=== PATIENT | male | born 1970 | race Caucasian/White ===

== ENCOUNTER 2020-08-31 03:36 | Outpatient (CLI) | payer BC, SELFPAY ==
[2020-08-31 10:04] LABS: Calculated LDL 150 mg/dL (<100); Cholesterol 226 mg/dL (<200); HDL Cholesterol 57 mg/dL (40-60); Triglyceride 97 mg/dL (<150)
[2020-08-31 10:05] LABS: Hemoglobin A1C 5.2 % (<5.7)
== END 2020-08-31 03:37 | disposition home or self-care (01) ==
LOC: LBO 03:37
PROVIDERS: PCP Nurse Practitioner; Visit Provider Nurse Practitioner
DX: Z13.1 Encounter for screening for diabetes mellitus (principal); Z13.6 Encounter for screening for cardiovascular disorders
CPT/HCPCS: 36415; 80061; 83036

== ENCOUNTER → 2021-08-28 01:33 | Outpatient (CLI) | payer OTHER, SELFPAY ==
--- NOTE | 2021-08-28 08:20 | DI.RAD_ITS ---
Exam(s) XR CHEST 2V PA LATERAL EXAM: XR CHEST 2V PA LATERAL CLINICAL HISTORY: recurrent SOB, mild pleuritic symtoms, normal exam,r06.02 TECHNIQUE: 2D digital imaging was performed. COMPARISON: No exams were available for comparison FINDINGS: MEDIASTINUM: Normal. HEART: Normal. PULMONARY VASCULATURE: Normal. LUNGS: Clear. PLEURAL SPACE: No pleural effusion or pneumothorax. BONE:Unremarkable for age. IMPRESSION: No acute abnormality. DATA REPOSITORY: RADIATION DOSE DELIVERED:
== END ==
PROVIDERS: PCP Nurse Practitioner; Visit Provider Family Medicine
DX: R06.02 Shortness of breath (principal); R07.81 Pleurodynia
CPT/HCPCS: 71046

== ENCOUNTER 2021-08-28 03:33 | Outpatient (CLI) | payer OTHER, SELFPAY ==
[2021-08-28 08:17] LABS: HCT 43.1 % (40.0-50.0); HGB 15.4 g/dL (13.5-17.5); MCH 30.1 pg (27.0-33.0); MCHC 35.7 % (32.0-36.0); MCV 84.2 fL (80-95); MPV 9.3 fL (8.0-11.0); Platelet Count 179 10^3/uL (130-400); RBC 5.12 10^6/uL (4.36-5.78); RDW 11.9 % (11.8-14.1); RDW-SD 36.1 fL; WBC 6.22 10^3/uL (4.4-10.8)
[2021-08-28 09:53] LABS: ALT 54 U/L (16-63); AST 26 U/L (15-37); Albumin 4.1 g/dL (3.4-5.0); Alkaline Phosphatase 58 U/L (46-116); Anion Gap 6.5 mmol/L (3-11); BUN 17 mg/dL (7-18); Bilirubin, Total 0.8 mg/dL (0.2-1.0); CO2 29.5 mmol/L (21.0-32.0); CREATININE 0.9 mg/dL (0.70-1.30); Calcium 8.5 mg/dL (8.5-10.1); Calculated LDL 129 mg/dL (<100); Chloride 105 mmol/L (98-107); Cholesterol 202 mg/dL (<200); Glucose 118 mg/dL (74-106); HDL Cholesterol 46 mg/dL (40-60); Sodium 141 mmol/L (136-145); TSH (W/Ref FT4) 2.37 uIU/mL (0.36-3.74); Total Protein 7.2 g/dL (6.4-8.2); Triglyceride 137 mg/dL (<150)
[2021-08-29 09:34] LABS: Hepatitis C Ab w Rflx HCV PCR Negative (Negative)
[2021-08-29 09:51] LABS: HIV-1/2 Ag & Ab Screen Negative (Negative)
== END 2021-08-28 03:34 | disposition home or self-care (01) ==
LOC: LBO 03:34
PROVIDERS: Family Medicine; PCP Nurse Practitioner; Visit Provider Nurse Practitioner
DX: I10 Essential (primary) hypertension (principal); E78.5 Hyperlipidemia, unspecified; R06.02 Shortness of breath; Z11.4 Encounter for screening for human immunodeficiency virus [HIV]; Z11.59 Encounter for screening for other viral diseases
CPT/HCPCS: 36415; 80053; 80061; 85027; 86803; 87389; 84443

== ENCOUNTER 2023-04-01 08:00 | Day surgery (SDC) | payer OTHER, SELFPAY ==
--- NOTE | 2023-03-31 18:40 | W.PM.DSUDISC ---
Date of service: 04/01/23 Time of Service: 10:09 Discharge Plan Disposition Patient Disposition: Home Condition: Good Discharge Details Reason For Visit: screening colonoscopy Attending Provider: Bartolome Mosqueda Primary Care Provider: Annette Swan Home Meds and New Rx's Prescriptions: Continued cetirizine [Zyrtec] 10 mg tablet 10 mg PO DAILY PRN melatonin 5 mg capsule 5 mg PO HS PRN Discontinued polyethylene glycol 3350 17 gram/dose powder 238 g PO ONCE Qty: 238 0RF Rx Instructions: take per colonoscopy instructions bisacodyl [Dulcolax (bisacodyl)] 5 mg tablet,delayed release (DR/EC) 5 mg PO ONCE Qty: 4 0RF Rx Instructions: take per colonoscopy instructions Discharge Instructions Instructions: Colorectal Polyps (GEN) Additional Instructions: Immanuel, we were able to complete your colonoscopy today without any difficulty. I did find 1 small polyp. I removed it completely. Once I have the results of the report on the nature of the polyp, I will be in touch with my recommendations for your next colonoscopy. 1. If tolerated, consume a soft, low fiber diet for 1-2 days. 2[address] Do not drive, drink alcohol, operate machinery, make critical decisions, or do activities that require coordination or balance for 24 hours. 3. Because air was put into your colon during the procedure, expelling air from your rectum (passing gas or farting) is normal. 4. You may not have a bowel movement for 1-3 days because of the colonoscopy prep. This is normal. 5. Go directly to the emergency room if you notice any of the following: Develop chills (warm to touch), or if you have a thermometer and your temperature is above 101 Difficulty breathing or difficultly swallowing Persistent vomiting Severe abdominal pain, other than gas cramps Severe chest pain Black, tarry stools Any bleeding ? exceeding one tablespoon 6. Call your physician if the site where your intravenous was started becomes red, swollen, painful, and warm to touch. 7. Your physician has reviewed your pre-procedure medications. Please continue to take those medications as previously ordered. You will be given specific information/education regarding any changes to your medications before leaving. Activity:: Activity as Tolerated Diet:: As Tolerated Discharge Orders Discharge Orders: Discharge Order (Routine); Ordered 03/31/23 Ordered By: Bartolome Mosqueda DS: Diagnosis Discharge Diagnosis (1) Screen for colon cancer: Status: Acute Asessment and Plan: Follow-up on polypectomy results
--- NOTE | 2023-03-31 18:41 | W.COLOREPORT ---
Date of service: 04/01/23 Time of Service: 10:11 Colonoscopy Report Date of procedure: 04/01/23 Pre-op diagnosis general: Screening colonoscopy Post-op diagnosis procedure note: other (Colon polyp) Procedure: Colonoscopy with polypectomy Surgeon: Bartolome Mosqueda Anesthesia Type: General:No Airway Estimated blood loss (mL): 5 Pathology: other (0.25 cm polyp at 95 cm) Complications: None Disposition: same day Indications: Immanuel is 52 years old and he is here for his first screening colonoscopy Prep: Miralax/Dulcolax Procedure Start Time: 09:44 Procedure End Time: 09:59 Retraction Time: 12 Findings: 0.25 cm polyp at 95 cm from the anus Procedure Description: After the induction of monitored anesthetic care, and with the patient in left lateral decubitus position, I began by performing an external anorectal exam.? Perineum and skin were normal, as was the anal verge.? There was no evidence of external hemorrhoids.? Next, I performed a digital rectal exam.? I did not appreciate any abnormal findings.? Next, I advanced a colonoscope into the rectal vault.? I performed retroflexion.? This appeared normal.? Using insufflation, I then advanced the colonoscope beyond the rectal folds and into the sigmoid colon before advancing towards the cecum.? The scope was noted to be in the cecum by identification of the ileocecal valve and appendiceal orifice.? I then began withdrawing the colonoscope using repeated irrigation as necessary for full evaluation of the colonic mucosa. Around 95 cm from the anal verge I identified a 0.25 cm polyp. ?It appeared sessile in character. ?I was able to remove this with a cold forcep polypectomy. ?I examined the site, and there was minimal bleeding. ?Once this was completed, I continued to withdraw the scope and examine the remainder of the colonic mucosa.?Once the scope was withdrawn to the level of the rectum, great care was taken to examine portions of the rectal folds.? Finally, the scope was withdrawn and the patient was brought to the same-day surgery recovery unit as the anesthetic wore off. ?The findings and instructions were shared with the patient prior to discharge. [place] Bowel Prep [place] Bowel Prep Right Colon: 3 Left Colon: 3 Transverse Colon: 3 Total Score: 9
[2023-04-01 08:45] VITALS: BP 126/86; PULSE 54; RESP 16; TEMP 36.4; O2SAT 100
--- NOTE | 2023-04-01 09:04 | W.ANESPRE ---
General Info Date of Service Date Performed: 04/01/23 Height: 5 ft 8.25 in Weight: 80.9 kg Body Mass Index (BMI): 26.9 Surgical Procedure: Operation Date: 04/01/23 09:50 Proposed Procedure Side Surgeon p Colonoscopy Bartolome Mosqueda MD Meds Allergies and Home Medications Allergies Allergy/AdvReac Type Severity Reaction Status Date / Time No Known Allergies Allergy Verified 04/01/23 08:40 Home Medication Medication Instructions Recorded melatonin 5 mg capsule 5 mg PO HS PRN 07/29/19 cetirizine 10 mg tablet (Zyrtec) 10 mg PO DAILY PRN 08/26/20 Current Visit Medications: Current Medications Generic Name Dose Route Start Last Admin Trade Name Freq PRN Reason Stop Dose Admin Hyoscyamine Sulfate 0.125 mg 03/31/23 18:43 Hyoscyamine 0.125 Mg Sl/Oral/Chew SL 04/30/23 18:42 DIRECTED PRN Ringer's Solution 1,000 mls @ 80 mls/hr 04/01/23 06:00 IV 04/28/23 23:59 [facility] IV Miscellaneous Supplies 1 each 04/01/23 06:00 Iv Access IV 04/28/23 23:59 DIRECTED JENNY Ondansetron HCl 4 mg 03/31/23 18:43 Ondansetron 4 Mg/2 Ml Vial IVP 04/30/23 18:42 Q4H PRN PRN Nausea / Vomiting Sodium Chloride 0 ml 04/01/23 06:00 Normal Saline Flush 10 Ml Syr IV 04/28/23 23:59 PRN PRN Sodium Chloride 0 ml 04/01/23 06:00 Normal Saline 10 Ml Vial IJ 04/28/23 23:59 DIRECTED PRN Sterile Water 0 ml 04/01/23 06:00 Water,Injection,Sterile 10 Ml Vial IJ 04/28/23 23:59 DIRECTED PRN PFSH Active Problems Active Problems: Problem Status Onset Code Screen for colon cancer Z12.11 Adult BMI > 30 Medical History Medical History Synovial cyst of left wrist pt unsure of what kind of cyst Insomnia pt. reports he sleeps during the day because he works at night Seasonal allergies Tobacco Smoking/Tobacco Use Status: Never Passive smoking exposure: Yes Second hand exposure: Yes Alcohol Alcohol Intake: current Alcohol intake frequency: a few times a week Alcohol type: beer and hard liquor Substance Use Substance use: Rarely Substance use type: marijuana Details: alcohol: t-2,couple beers. Marijuana: t-30 Vital Signs and Lab Results Vital Signs Most Recent Vital Signs in EMR: Most Recent Vital Signs Temp Pulse Resp BP Pulse Ox 36.4 C L 54 L 16 126/86 100 04/01/23 08:45 04/01/23 08:45 04/01/23 08:45 04/01/23 08:45 04/01/23 08:45 Lab Results Blood Type / Crossmatch: No Data to Display Complete Blood Count: No Data to Display Complete Metabolic Panel: No Data to Display Liver Function Panel: No Data to Display Coagulation Panel: No Data to Display Cardiac Panel: No Data to Display Arterial Blood Gas: No Data to Display Venous Blood Gas: No Data to Display Pancreas Panel: No Data to Display Thyroid Panel: No Data to Display Infectious Disease: No Data to Display Blood Cultures: No Data to Display Toxicology Panel: No Data to Display Anesthesia Assessment and Plan Anesthesia History Personal History: No History of Anesthesia Complications Family History: No Family History of Anesthesia Complications Exercise Tolerance Exercise Tolerance: Metabolic Equivalents>4 Pertinent Negatives Pertinent Negatives: No Symptoms of GERD, No Major Cardiovascular Symptoms or Complaints and No Major Pulmonary Symptoms or Complaints Cardiac & Pulmonary Exam Cardiac Exam: Normal S1/S2 Heart Sounds Pulmonary Exam: Clear Bilateral Breath Sounds Implantable Cardiac Device Does patient have a Pacemaker or an ICD?: No Airway Exam Known Difficult Airway: No Mallampati Class: 3 Mouth Opening: Normal (> 3cm) Thyromental Distance: Less than 3 cm Facial Hair: Full [place] Neck Range of Motion: Full ROM Neck Circumference: Normal Teeth Condition: Normal Dentition ASA Classification ASA Score: ASA 2 Emergency Case?: No NPO Status NPO Status: NPO Clears >2 hours, Solids >8 hours Anesthesia Plan Resuscitation Status: Full Code Anesthesia Technique: General Anesthesia Airway Planned: Natural Airway Monitors Used: Standard Monitors
[2023-04-01] MEDS: Lactated Ringers 1,000 ML 80 ML IV (09:05)
[2023-04-01 09:06] VITALS: BMI 26.9
--- NOTE | 2023-04-01 09:52 | BOWEL_PTH ---
PATIENT: Immanuel Enriquez I LOC: [facility] U#:[id number] AGE/SX: 52/M ROOM: RE04/01/[address]: Bartolome Mosqueda MD : 1970 BED: DIS: 04/01/2023 SPEC #: [id number] RECD: 04/01/23 12:43 STATUS: EDY REQ #: [id number] ADDIS: 04/01/23 09:[address]: Bartolome Mosqueda DEPT: Surgical Specimen RECD BY: Genie Veloz ENTERED: 04/01/23 12:44 SP TYPE: Bowel OTHR DR: Annette Swan, ROBERTO Tissues: 1 - BIOPSY BOWEL Procedures: GROSS AND MICRO LEVEL 4 Comments: [id number]
[2023-04-01 10:10] VITALS: BP 109/78; PULSE 58; RESP 16; TEMP 36.1; O2SAT 96
[2023-04-01 10:41] VITALS: BP 125/91; PULSE 49; RESP 16; TEMP 36.4; O2SAT 100
--- NOTE | 2023-04-01 10:58 | W.ANESPOSTOP ---
Postoperative Evaluation Date, Time and Location Date Performed: 04/01/23 Time Performed: 10:57 Patient Location: Day Surgery Unit Vital Signs Most Recent Imported Vital Signs: Most Recent Vital Signs Temp Pulse Resp BP Pulse Ox 36.4 C L 49 L 16 125/91 H 100 04/01/23 10:41 04/01/23 10:41 04/01/23 10:41 04/01/23 10:41 04/01/23 10:41 Pain Score Most Recent Pain Score: Most Recent Pain Score Pain Level 0 04/01/23 10:41 Assessment Mental Status: Awake (Alert & Oriented to Patient Baseline) Airway and Respiratory Function: Patent airway with normal (patient baseline) respiratory exam Cardiovascular Function: Hemodynamically Stable Hydration Status: Adequately Hydrated Nausea & Vomiting: No Nausea or Vomiting Pain: Pt. Denies Any Pain Peripheral Nerve Block: Patient did not receive a nerve block
== END 2023-04-01 11:10 | disposition home or self-care (01) ==
PROVIDERS: PCP Nurse Practitioner Family; Visit Provider Surgery
PROC: 0DJD8ZZ Inspection of Lower Intestinal Tract, Via Natural or Artificial Opening Endoscopic (ICD-10-PCS; CPT 45378; principal; 2023-04-01 09:45)
DX: Z12.11 Encounter for screening for malignant neoplasm of colon (principal); D12.3 Benign neoplasm of transverse colon
CPT/HCPCS: 45380; 88305; J2001

== ENCOUNTER 2023-10-11 01:41 | Outpatient (CLI) | payer OTHER, SELFPAY ==
[2023-10-11 12:42] LABS: HCT 46.1 % (40.0-50.0); HGB 15.6 g/dL (13.5-17.5); MCH 30.1 pg (27.0-33.0); MCHC 33.8 % (32.0-36.0); MCV 89 fL (80-95); MPV 9.9 fL (8.0-11.0); Platelet Count 196 10^3/uL (130-400); RBC 5.19 10^6/uL (4.36-5.78); RDW 12.1 % (11.8-14.1); RDW-SD 39.6 fL; WBC 5.75 10^3/uL (4.4-10.8)
[2023-10-11 13:27] LABS: ALT 29 U/L (16-63); AST 14 U/L (15-37); Albumin 4.4 g/dL (3.4-5.0); Alkaline Phosphatase 52 U/L (46-116); BUN 20 mg/dL (7-18); Bilirubin, Total 1.2 mg/dL (0.2-1.0); CREATININE 1.1 mg/dL (0.70-1.30); Calcium 8.9 mg/dL (8.5-10.1); Calculated LDL 175 mg/dL (<100); Chloride 101 mmol/L (98-107); Cholesterol 250 mg/dL (<200); Estimated GFR 81.78 (mL/min/1.73m2); Glucose 76 mg/dL (74-106); HDL Cholesterol 65 mg/dL (40-60); Potassium 4.1 mmol/L (3.5-5.1); Sodium 138 mmol/L (136-145); Total Protein 7.6 g/dL (6.4-8.2); Triglyceride 52 mg/dL (<150)
== END 2023-10-11 01:42 | disposition home or self-care (01) ==
LOC: LOS 01:41
PROVIDERS: PCP Nurse Practitioner Family; Visit Provider Nurse Practitioner Family
DX: Z00.00 Encounter for general adult medical examination without abnormal findings (principal)
CPT/HCPCS: 36415; 80053; 80061; 85027

== ENCOUNTER 2024-08-10 04:25 | Outpatient (CLI) | payer OTHER, SELFPAY ==
[2024-08-10 10:49] LABS: HCT 43.5 % (40.0-50.0); HGB 14.8 g/dL (13.5-17.5); MCH 29.8 pg (27.0-33.0); MCV 88 fL (80-95); MPV 9.9 fL (8.0-11.0); Platelet Count 204 10^3/uL (130-400); RBC 4.96 10^6/uL (4.36-5.78); RDW 11.9 % (11.8-14.1); RDW-SD 37.9 fL; WBC 4.61 10^3/uL (4.4-10.8)
[2024-08-10 11:00] LABS: ALT 32 U/L (16-63); AST 18 U/L (15-37); Albumin 3.9 g/dL (3.4-5.0); Alkaline Phosphatase 43 U/L (46-116); Anion Gap 6.3 mmol/L (3-11); BUN 18 mg/dL (7-18); Bilirubin, Total 0.5 mg/dL (0.2-1.0); CO2 30.7 mmol/L (21.0-32.0); Calcium 9.1 mg/dL (8.5-10.1); Calculated LDL 159 mg/dL (<100); Chloride 106 mmol/L (98-107); Cholesterol 250 mg/dL (<200); Estimated GFR 91.12 (mL/min/1.73m2); Glucose 109 mg/dL (74-106); HDL Cholesterol 70 mg/dL (>or=40); Sodium 143 mmol/L (136-145); Total Protein 6.9 g/dL (6.4-8.2); Triglyceride 105 mg/dL (<150)
[2024-08-10 19:38] LABS: PSA, Screening 0.9 ng/mL (<=3.5)
== END 2024-08-10 04:26 | disposition home or self-care (01) ==
LOC: LOS 04:25
PROVIDERS: PCP Nurse Practitioner Family; Visit Provider Nurse Practitioner Family
DX: Z00.00 Encounter for general adult medical examination without abnormal findings (principal); Z12.5 Encounter for screening for malignant neoplasm of prostate
CPT/HCPCS: 36415; 80053; 80061; 84153; 85027